=== PATIENT | female | born 1985 | race Caucasian/White ===

== ENCOUNTER 2019-08-28 16:04 | Observation (INO) ==
[2019-08-28] MEDS ORDERED: IOPAMIDOL 100 ML BOTTLE IV ONE (16:05)
[2019-08-28] MEDS ORDERED: 0.9 % SODIUM CHLORIDE 1,000 ML IV ONE (16:31)
--- NOTE | 2019-08-28 16:33 | Emergency Department Note ---
Abdominal Pain HPI - General Chief Complaint: Abdominal Pain Stated Complaint: Lower right abd pain Time Seen by Provider: 08/28/19 16:22 Source: patient Mode of arrival: ambulatory Limitations: no limitations - History of Present Illness HPI Narrative: 34-year-old female patient was referred to the emergency department via my care for worsening right lower quadrant abdominal pain and to rule out appendicitis. Patient tells me she has had umbilical pain for the last 2-3 days it is now slowly migrated towards the right lower quadrant. She describes the umbilical pain is more of a "gas type pain". She describes the pain to her right lower quadrant is more of a "sharp" type pain. She admits to some mild nausea but no vomiting. She denies any diarrhea or constipation. She denies fever, sweats, chills. She denies shortness of breath. She admits to a history of arrhythmias but denies any palpitations or chest pain currently. She denies any vaginal discharge, dysuria, or hematuria. She just finished her menstrual cycle last week. She denies focal weakness. A review of her active problem list shows the following: Vasovagal syncope, d ehydration, endometritis, and palpitations. - Related Data Home Medications Medication Instructions Recorded Confirmed No Known Home Meds 07/19/18 08/28/19 Allergies Allergy/AdvReac Type Severity Reaction Status Date / Time Latex, Natural Rubber AdvReac Intermediate Rash Verified 08/28/19 16:04 Review of Systems All systems ED: reviewed and negative except as stated. Abdominal Pain PMH - Past Medical History Medical history: Reports: migraine GENERAL DUTY NURSE history: Reports: - Social History Smoking status: Never smoker Alcohol use: Reports: Rarely Drug use: Reports: none Physical Exam Limitations: no limitations General appearance: alert, anxious, in no apparent distress (As she rests on the emergency room gurney. She has considerable pain and distress with abdominal palpation.) Head: atraumatic, normocephalic Eye: Present: normal appearance, PERRL, EOMI. Absent: scleral icterus, conjunctival injection ENT: Present: normal oropharynx, mucous membranes moist Neck: Present: trachea midline. Absent: lymphadenopathy, thyromegaly Chest: Present: symmetric chest wall rise Respiratory: Present: normal lung sounds bilaterally. Absent: respiratory distress, wheezes, stridor, accessory muscle use, prolonged expiratory phase Cardiovascular: Present: regular rate, normal rhythm. Absent: systolic murmur, diastolic murmur Abdominal: Present: soft, tenderness, guarding, rebound, normal bowel sounds, psoas sign, heel tap sign. Absent: distention, rigidity, organomegaly, obturator sign, mass Abdominal tenderness: Present: RLQ, severe, heel tap pain. Absent: right femur ext pain Extremities: Absent: pedal edema, pretibial edema, calf tenderness Back: Present: full ROM. Absent: CVA tenderness (R), CVA tenderness (L) Neurological: Present: alert, oriented X3 Psychiatric: Present: normal mood, anxious Skin: Present: warm, dry, normal color Course Course Narrative: Patient was brought into the emergency department and a history and physical exam was performed. Saline lock was established and laboratory studies were drawn. Patient was offered either Toradol or something stronger for abdominal pain but she refused this at this time. An ultrasound of her abdomen was ordered and reviewed. Normal saline was started at thousand liter bolus. Review of her laboratory studies show the following: CBC elevated WBC 12.7, granulocyte percent 85.4, granulocyte #10.8. CMP glucose 110, all others normal limits. Abdominal ultrasound read as mildly distended non-peristalsing tubular structure consistent with slightly enlarged appendix. There is mild right lower quadrant adenopathy with minimal free pelvic fluid. Radiologist recommended a CT scan to rule out appendicitis. Patient's pain worsened and she was given Dilaudid 0.5 mg and Zofran [address] scan was ordered and reviewed. Normal CT scan read by the radiologist as retrocecal appendix with findings consistent with acute appendicitis. With this in mind, I reexamined her general surgeon (Dr. Alvarado) about the patient's condition and need for further evaluation and possible appendectomy. At this time Dr. Alvarado has decided to admit the patient under observation. She told me he did be to finish the rest the admissions orders. At this time patient is going to be admitted to the hospital under the care of Dr. Alvarado. All further treatment decisions and modalities will be carried out by Dr. Alvarado. Vital Signs Temperature 98.0 F 08/28/19 16:04 Pulse Rate 104 H 08/28/19 16:04 Respiratory Rate 16 08/28/19 16:04 Blood Pressure 133/77 08/28/19 16:04 Pulse Oximetry (%) 99 08/28/19 16:04 Temperature 98.0 F 08/28/19 16:04 Pulse Rate 97 H 08/28/19 17:35 Respiratory Rate 16 08/28/19 16:04 Blood Pressure 120/74 08/28/19 17:35 Pulse Oximetry (%) 100 08/28/19 17:35 Abdominal Pain - Lab Data Lab results reviewed: Yes I reviewed the patient's lab results. Result diagrams: 08/28/19 16:46 08/28/19 16:46 Lab Results 08/28/19 08/28/19 Range/Units 16:46 16:46 WBC 12.7 H (4.5-11.0) K/mcL RBC 4.79 (4.00-5.20) M/mcL Hgb 14.3 (12.0-15.0) g/dL Hct 42.9 (36.0-48.0) % MCV 89.7 (80.0-100.0) fL MCH 29.9 (26.0-34.0) pg MCHC 33.3 (31.0-36.0) g/dL RDW 13.4 (11.5-14.5) % Plt Count 264 (140-440) K/mcL MPV 7.7 (7.4-10.4) fL Gran % 85.4 H (38.0-78.0) % Lymph % (Auto) 10.4 L (15.5-49.0) % [place] % (Auto) 3.9 (1.0-12.0) % Eos % (Auto) 0.1 (0.0-7.0) % Baso % (Auto) 0.2 (0.0-2.0) % Gran # 10.8 H (1.8-8.0) K/mcL Lymph # (Auto) 1.3 L (1.5-4.8) K/mcL [place] # (Auto) 0.5 (0.1-0.9) K/mcL Eos # (Auto) 0 (0.0-0.7) K/mcL Baso # (Auto) 0 (0.0-0.3) K/mcL Sodium 137 (133-145) mmol/L Potassium 3.7 (3.3-5.1) mmol/L Chloride 102 (96-108) mmol/L Carbon Dioxide 23 (22-30) mmol/L Anion Gap 12.0 (8-16) BUN 13 (6-20) mg/dl Creatinine 0.7 (0.6-1.1) mg/dl GFR Calculation 112 Glucose 110 H (70-105) mg/dL Calcium 10.1 (8.6-10.4) mg/dl Total Bilirubin 0.3 (0.0-1.0) mg/dL AST 18 (0-37) U/l ALT 14 (0-40) U/l Alkaline Phosphatase 66 (39-117) U/L Total Protein 7.7 (5.9-8.4) gm/dL Albumin 4.7 (3.2-5.2) gm/dL Globulin 3.0 (2.2-3.7) gm/dL Albumin/Globulin Ratio 1.6 (1.0-2.3) - Radiology Data Radiology results reviewed: Yes I reviewed the patient's radiology results. Ordering Physician: Segundo Roca PA-C Date of Service: 08/28/19 Procedure(s): US abdomen limited Accession Number(s): [id number] IMPRESSION: 1. Mildly distended nonperistalsing tubular structure consistent with slightly enlarged appendix 2. Mild right lower quadrant adenopathy and minimal free pelvic fluid Ordering Physician: Segundo Roca PA-C Date of Service: 08/28/19 Procedure(s): CT abdomen pelvis w con Accession Number(s): [id number] IMPRESSION: Retrocecal appendix. Findings consistent with acute appendicitis. There is periappendiceal inflammatory change and fluid ruptured appendicitis is suspected. Interpreted and Authenticated by: Epifanio Greco 08/28/19 Disposition Pt seen by LICENSED VOCATIONAL NURSE/PA only: Yes Clinical Impression: Acute appendicitis Qualifiers: Acute appendicitis type: with localized peritonitis Appendicitis gangrene presence: unspecified whether gangrene present Appendicitis perforation presence: unspecified whether perforation present Appendicitis abscess presence: without abscess Qualified Code(s): K35.30 - Acute appendicitis with localized peritonitis, without perforation or gangrene Disposition: Xfer As Outpt/Obs ([facility]) Condition: Good Additional Instructions: Patient is going to be admitted to the hospital for observation under the care of Dr. Alvarado (general surgeon). All further treatment decisions and modalities will be carried out by Dr. Alvarado. Referrals: Asha Dorsey MD [Primary Care Provider] - Time of Disposition: 18:44
[2019-08-28 17:28] LABS: Basophils # (Auto) 0 K/mcL (0.0-0.3); Basophils % (Auto) 0.2 % (0.0-2.0); Eosinophils # (Auto) 0 K/mcL (0.0-0.7); Eosinophils % (Auto) 0.1 % (0.0-7.0); Granulocytes % (Auto) 85.4 % (38.0-78.0); Hematocrit 42.9 % (36.0-48.0); Hemoglobin 14.3 g/dL (12.0-15.0); Lymphocytes # (Auto) 1.3 K/mcL (1.5-4.8); Lymphocytes % (Auto) 10.4 % (15.5-49.0); Mean Cell Volume 89.7 fL (80.0-100.0); Mean Corpuscular HGB Conc 33.3 g/dL (31.0-36.0); Mean Platelet Volume 7.7 fL (7.4-10.4); Monocytes # (Auto) 0.5 K/mcL (0.1-0.9); Monocytes % (Auto) 3.9 % (1.0-12.0); Platelet Count 264 K/mcL (140-440); RBC 4.79 M/mcL (4.00-5.20); Red Cell Distribution Width 13.4 % (11.5-14.5); WBC 12.7 K/mcL (4.5-11.0)
[2019-08-28] MEDS ORDERED: ONDANSETRON 4 MG/2 ML VIAL IV ONE (17:44)
[2019-08-28 17:48] LABS: ALT/SGPT 14 U/l (0-40); AST/SGOT 18 U/l (0-37); Albumin 4.7 gm/dL (3.2-5.2); Albumin/Globulin Ratio 1.6 (1.0-2.3); Alkaline Phosphatase 66 U/L (39-117); Bilirubin,Total 0.3 mg/dL (0.0-1.0); Blood Urea Nitrogen 13 mg/dl (6-20); Calcium 10.1 mg/dl (8.6-10.4); Carbon Dioxide 23 mmol/L (22-30); Chloride 102 mmol/L (96-108); Glomerular Filtration Rate 112; Glucose 110 mg/dL (70-105)
--- NOTE | 2019-08-28 17:57 | Ultrasound Report ---
CLINICAL INFORMATION: Right lower quadrant pain TECHNIQUE: Routine soft tissue ultrasound. Grayscale and color flow Doppler spectral imaging COMPARISON: None. FINDINGS: There is a nonperistalsing tubular structure in the right lower quadrant. This measures 8 mm maximally. Appearance is consistent with a mildly enlarged appendix. There are small adjacent lymph nodes and there is minimal free fluid. Appearance is suggestive of appendicitis. Confirmatory CT scan is recommended. There is no focal abscess. IMPRESSION: 1. Mildly distended nonperistalsing tubular structure consistent with slightly enlarged appendix 2. Mild right lower quadrant adenopathy and minimal free pelvic fluid Interpreted and Authenticated by: Epifanio Greco 08/28/19
--- NOTE | 2019-08-28 18:21 | Cat Scan Report ---
CLINICAL INFORMATION: Right lower quadrant pain COMPARISON: Limited ultrasound dated 08/28/2019 TECHNIQUE: Axial images were obtained through the abdomen and pelvis. Sagittally and coronally reformatted images. 70 mL Isovue 370 injected intravenously. Oral contrast material was not administered FINDINGS: Lung bases:Negative. No parenchymal infiltrate or mass. No pleural fluid. No pericardial fluid. Liver:Negative. No focal intrahepatic abnormality. No hepatic abscess. Gallbladder, billary:Negative. No calcific gallstones. No dilated bile ducts Spleen:Negative. No splenomegaly. Normal enhancement splenic and portal veins Pancreas:Negative. No pancreatic mass. No peripancreatic abnormality Adrenal glands:Negative Kidneys, ureters, bladder:No renal mass. There is a prominent right renal pelvis. No true hydronephrosis or hydroureter. No urolithiasis. No bladder calculi Gastrointestinal:Prominent fecal material within the sigmoid colon and rectum. Mildly prominent fecal material throughout the colon. Appearance suggests constipation. No dilated small bowel. There is a distended retrocecal appendix. This measures 12 mm in cross-sectional diameter distally. This measures approximately 14 mm in cross-sectional diameter proximally. There is probably a subtle small appendicolith. There is periappendiceal inflammatory change and fluid. No free air. No well-defined abscess. Rupture is suspected. There is minimal fluid within the pelvic cul-de-sac. Vascular:No abdominal aortic aneurysm. No calcified atherosclerotic plaque Lymphatic:No retroperitoneal lymphadenopathy. No mesenteric adenopathy. Mesentery, peritoneum:Small amount of free pelvic fluid within the cul-de-sac. No intra-abdominal abscess. No pneumoperitoneum. Reproductive:Uterus is anteflexed. There is an intrauterine contraceptive device. No adnexal mass Musculoskeletal:Normal lumbar spine. Sacrum and pelvis are negative. IMPRESSION: Retrocecal appendix. Findings consistent with acute appendicitis. There is periappendiceal inflammatory change and fluid ruptured appendicitis is suspected. The exam was performed using radiation dose optimization techniques including, but not limited to, automated exposure control, adjustment of the mA and/or kV according to patient size and use of iterative reconstruction technique. Interpreted and Authenticated by: Epifanio Greco 08/28/19
[2019-08-28] MEDS: HYDROmorphone 2 MG/ML VIAL IV PRN ×3 (18:22→20:32)
[2019-08-28] MEDS ORDERED: PROMETHAZINE 25 MG/ML VIAL IV PRN (19:20)
[2019-08-28] MEDS ORDERED: ONDANSETRON 4 MG/2 ML VIAL IV PRN (19:20)
--- NOTE | 2019-08-28 19:51 | General Surg History&Physical ---
History of Present Illness Patient information: Note initiated : 08/28/19 at 7:48 pm Service Date, if different from initiated Date: [] Patient: Inessa Moore 34 y/o F admitted on for Lower right abd pain. Chief Complaint: [] HPI: Ms. Moore is a 34 year old F admitted with acute appendicitis. The patient has a 5 day history of gas pain and bloating in her midabdomen in the periumbilical area. Today the pain became much worse and localized in the right lower quadrant. She has some nausea with retching. She has not had diarrhea. She still has similar pain in the past. White blood count is 12.5. CT shows dilated appendix with periappendiceal inflammation and fluid compatible with appendicitis. She is counseled for laparoscopic appendectomy and will be performed tomorrow. Review of Systems All systems PM: reviewed and no additional remarkable complaints except as stated (no abnormality no abnormality noted except for migraine headaches and as noted in history of present illness) Past History Past medical history: No chronic medical illness Past surgical history: Tonsillectomy Past family history: Mother age 60 alive and well without illness Father age 62 with hypertension Past social history: No history of tobacco use Occasional wine intake No history of drug abuse Medications and Allergies Home Medications Medication Instructions Recorded Confirmed Type No Known Home Meds 07/19/18 08/28/19 History Allergies Allergy/AdvReac Type Severity Reaction Status Date / Time Latex, Natural Rubber AdvReac Intermediate Rash Verified 08/28/19 16:04 Exam Temp Pulse Resp BP Pulse Ox 98.0 F 96 H 16 114/81 96 08/28/19 16:04 08/28/19 18:42 08/28/19 16:04 08/28/19 18:42 08/28/19 18:42 - General physical appearance well developed, moderate distress, moderate pain, other (underweight) - Eyes PERRL, normal ocular movement - ENT normal pinna, normal nares, normal mucosa, no hearing loss, no congestion - Head Head exam IM: Present: atraumatic, normocephalic - Neck no masses, no bruits, trachea midline, no lymphadenopathy, no venous distension - Cardiovascular Cardiovascular exam IM: Present: normal rate and rhythm - Respiratory normal expansion, normal respiratory effort, clear to percussion, clear to auscultation - Abdomen Abdomen: Present: soft, tender (diffuse tenderness right lower quadrant with guarding), bowel sounds, guarding, distended (mild distention in the hypogastrium) Hernia: Present: none - Genitourinary Present: normal external genitalia - Integumentary Present: no rash, no growths, no abnormal pigmentation - Neurologic Present: normal coordination, normal sensation - Musculoskeletal Present: normal gait, normal posture - Psychiatric Present: oriented to time, oriented to person, oriented to place, speech is normal, memory intact Assessment and Plan (1) Acute appendicitis Patient counseled for laparoscopic appendectomy which will be performed tomorrow Zosyn 3.375 g IV every 6 Promethazine 12.5 mg IV every 4 hours when necessary nausea Dilaudid 1 mg IV every 2 hours when necessary pain Status: Acute Qualifiers: Acute appendicitis type: with localized peritonitis Appendicitis gangrene presence: unspecified whether gangrene present Appendicitis perforation presence: unspecified whether perforation present Appendicitis abscess presence: without abscess Qualified Code(s): K35.30 - Acute appendicitis with localized peritonitis, without perforation or gangrene
[2019-08-28 20:02] LABS: Prothrombin Time 12.9 sec (11.9-14.5)
[2019-08-28] MEDS: 0.9 % SODIUM CHLORIDE 1,000 ML IV SCH (20:31)
[2019-08-28] MEDS: ACETAMINOPHEN 1,000 MG/100 ML BOTTLE IV SCH (20:32)
[2019-08-28] MEDS: PIPERACILLIN SODIUM/TAZOBACTAM 3.375 GM in DEXTROSE 5% IN WATER 50 ML IV SCH (21:20)
[2019-08-28] MEDS: 0.9 % SODIUM CHLORIDE 10 ML SYRINGE IV SCH (21:45)
[2019-08-29] MEDS: ACETAMINOPHEN 1,000 MG/100 ML BOTTLE IV SCH ×3 (01:36→14:03)
[2019-08-29] MEDS: PIPERACILLIN SODIUM/TAZOBACTAM 3.375 GM in DEXTROSE 5% IN WATER 50 ML IV SCH ×4 (02:19→17:14)
[2019-08-29] MEDS: HYDROmorphone 2 MG/ML VIAL IV PRN ×3 (02:57→17:14)
[2019-08-29] MEDS: 0.9 % SODIUM CHLORIDE 1,000 ML IV SCH ×4 (03:35→16:16)
[2019-08-29 06:04] LABS: Basophils # (Auto) 0 K/mcL (0.0-0.3); Basophils % (Auto) 0.2 % (0.0-2.0); Eosinophils # (Auto) 0 K/mcL (0.0-0.7); Eosinophils % (Auto) 0.1 % (0.0-7.0); Granulocytes % (Auto) 78.6 % (38.0-78.0); Hematocrit 36.3 % (36.0-48.0); Hemoglobin 11.9 g/dL (12.0-15.0); Lymphocytes # (Auto) 1.7 K/mcL (1.5-4.8); Lymphocytes % (Auto) 15.7 % (15.5-49.0); Mean Cell Volume 90.8 fL (80.0-100.0); Mean Corpuscular HGB Conc 32.9 g/dL (31.0-36.0); Mean Platelet Volume 7.8 fL (7.4-10.4); Monocytes # (Auto) 0.6 K/mcL (0.1-0.9); Monocytes % (Auto) 5.4 % (1.0-12.0); Platelet Count 221 K/mcL (140-440); Red Cell Distribution Width 13.1 % (11.5-14.5); WBC 11.1 K/mcL (4.5-11.0)
[2019-08-29] MEDS ORDERED: 0.9 % SODIUM CHLORIDE 1,000 ML IV ONE (06:30)
[2019-08-29] MEDS ORDERED: HYDROmorphone 2 MG/ML VIAL IV PRN (06:31)
[2019-08-29 06:41] LABS: ALT/SGPT 9 U/l (0-40); AST/SGOT 13 U/l (0-37); Albumin 3.5 gm/dL (3.2-5.2); Albumin/Globulin Ratio 1.5 (1.0-2.3); Alkaline Phosphatase 51 U/L (39-117); Bilirubin,Direct 0.2 mg/dL (0.0-0.3); Bilirubin,Total 0.9 mg/dL (0.0-1.0); Blood Urea Nitrogen 10 mg/dl (6-20); Calcium 8.2 mg/dl (8.6-10.4); Carbon Dioxide 24 mmol/L (22-30); Chloride 107 mmol/L (96-108); Globulin 2.3 gm/dL (2.2-3.7); Glomerular Filtration Rate 112; Glucose 93 mg/dL (70-105); Lactate Dehydrogenase 140 U/L (94-250); Phosphorous 3.6 mg/dL (2.7-4.5); Uric Acid 1.7 mg/dL (2.5-8.0)
[2019-08-29 06:43] LABS: Triglycerides 28 mg/dl (<150)
[2019-08-29] MEDS: 0.9 % SODIUM CHLORIDE 10 ML SYRINGE IV SCH ×2 (07:11→16:17)
[2019-08-29] MEDS ORDERED: SCOPOLAMINE 1 PATCH PATCH TOPICAL PRN (08:38)
[2019-08-29] MEDS ORDERED: IPRATROPIUM/ALBUTEROL 3 ML AMPUL.NEB NEB PRN ×2 (08:38→12:38)
[2019-08-29 09:46] LABS: HCG,Serum NEGATIVE <10 (<10 mIU/ml)
[2019-08-29] MEDS ORDERED: NALOXONE HCL 0.4 MG/ML VIAL IV PRN (12:38)
[2019-08-29] MEDS ORDERED: LACTATED RINGERS 250 ML IV PRN (12:38)
[2019-08-29] MEDS ORDERED: MEPERIDINE 25 MG/ML SYRINGE IV PRN (12:38)
[2019-08-29] MEDS ORDERED: ONDANSETRON 4 MG/2 ML VIAL IV PRN (12:38)
[2019-08-29] MEDS ORDERED: BENZOCAINE/MENTHOL 1 LOZENGE PO PRN (12:38)
[2019-08-29] MEDS ORDERED: ACETAMINOPHEN 750 MG/75 ML BOTTLE IV ONE (12:38)
[2019-08-29] MEDS ORDERED: diphenhydrAMINE 50 MG/ML VIAL IV PRN (12:38)
[2019-08-29] MEDS ORDERED: KETOROLAC 30 MG/ML VIAL IV PRN (12:38)
[2019-08-29] MEDS ORDERED: LACTATED RINGERS 1,000 ML IV SCH (12:45)
[2019-08-29] MEDS ORDERED: ROCURONIUM 10 MG/ML ML IV ONE (12:46)
[2019-08-29] MEDS ORDERED: ONDANSETRON 4 MG/2 ML VIAL ONE (12:46)
[2019-08-29] MEDS ORDERED: PROPOFOL 200 MG/20 ML VIAL IV ONE (12:46)
[2019-08-29] MEDS ORDERED: MIDAZOLAM 2 MG/2 ML VIAL ONE (12:46)
[2019-08-29] MEDS ORDERED: DEXAMETHASONE 10 MG/ML VIAL ONE (12:46)
[2019-08-29] MEDS ORDERED: SUGAMMADEX SODIUM 200 MG/2 ML VIAL IV ONE (12:46)
[2019-08-29] MEDS ORDERED: fentaNYL 100 MCG/2 ML VIAL IV ONE (12:46)
[2019-08-29] MEDS ORDERED: LIDOCAINE HCL/PF 100 MG/5 ML SYRINGE IV ONE (12:46)
--- NOTE | 2019-08-29 13:52 | Brief Operative Note ---
Date of procedure: 08/29/19 Pre-op diagnosis: acute appendicitis Post-op diagnosis: other (acute appendicitis) Procedure: laparoscopic appendectomy Grafts/Implants: No ( #10 DAYANA DRAIN X 1 ) Anesthesia: GETA Findings: ACUTE SEVERE SUPPURATIVE APPENDICITIS WITH PURULENT PELVIC FLUID Complications: none Surgeon: Jessi Alvarado Estimated blood loss (cc): 20 Specimens Removed/Pathology: other (APPENDIX) Condition: stable Disposition: PACU
[2019-08-29] MEDS: fentaNYL 100 MCG/2 ML VIAL IV PRN ×3 (14:11→14:23)
[2019-08-29] MEDS ORDERED: SCOPOLAMINE 1 PATCH PATCH TOPICAL ONE (14:33)
[2019-08-29] MEDS ORDERED: PROMETHAZINE 25 MG/ML VIAL IV PRN (14:43)
[2019-08-29] MEDS: ACETAMINOPHEN 750 MG/75 ML BOTTLE IV SCH (19:38)
[2019-08-30] MEDS: 0.9 % SODIUM CHLORIDE 1,000 ML IV SCH ×4 (00:18→15:34)
[2019-08-30] MEDS: PIPERACILLIN SODIUM/TAZOBACTAM 3.375 GM in DEXTROSE 5% IN WATER 50 ML IV SCH ×5 (00:19→23:32)
[2019-08-30] MEDS: HYDROmorphone 2 MG/ML VIAL IV PRN (00:57)
[2019-08-30] MEDS: ACETAMINOPHEN 750 MG/75 ML BOTTLE IV SCH ×4 (02:14→20:33)
[2019-08-30 05:28] LABS: Basophils # (Auto) 0 K/mcL (0.0-0.3); Basophils % (Auto) 0 % (0.0-2.0); Eosinophils # (Auto) 0 K/mcL (0.0-0.7); Eosinophils % (Auto) 0 % (0.0-7.0); Granulocytes % (Auto) 88.4 % (38.0-78.0); Hematocrit 35.2 % (36.0-48.0); Hemoglobin 11.8 g/dL (12.0-15.0); Lymphocytes # (Auto) 0.8 K/mcL (1.5-4.8); Lymphocytes % (Auto) 7.5 % (15.5-49.0); Mean Cell Volume 91.2 fL (80.0-100.0); Mean Corpuscular HGB Conc 33.4 g/dL (31.0-36.0); Mean Platelet Volume 8.2 fL (7.4-10.4); Monocytes # (Auto) 0.4 K/mcL (0.1-0.9); Monocytes % (Auto) 4.1 % (1.0-12.0); Platelet Count 210 K/mcL (140-440); RBC 3.86 M/mcL (4.00-5.20); Red Cell Distribution Width 13.3 % (11.5-14.5); WBC 10.1 K/mcL (4.5-11.0)
[2019-08-30 05:50] LABS: ALT/SGPT 8 U/l (0-40); AST/SGOT 11 U/l (0-37); Albumin 2.9 gm/dL (3.2-5.2); Albumin/Globulin Ratio 1.2 (1.0-2.3); Alkaline Phosphatase 48 U/L (39-117); Bilirubin,Total 0.4 mg/dL (0.0-1.0); Blood Urea Nitrogen 8 mg/dl (6-20); Calcium 8.1 mg/dl (8.6-10.4); Chloride 108 mmol/L (96-108); Globulin 2.4 gm/dL (2.2-3.7); Glomerular Filtration Rate 118; Glucose 120 mg/dL (70-105); Lactate Dehydrogenase 136 U/L (94-250); Triglycerides 31 mg/dl (<150)
[2019-08-30 05:56] LABS: Bilirubin,Direct < 0.2 mg/dL (0.0-0.3); Carbon Dioxide 19 mmol/L (22-30); Phosphorous 2.4 mg/dL (2.7-4.5); Uric Acid 1.3 mg/dL (2.5-8.0)
[2019-08-30] MEDS ORDERED: HYDROmorphone 2 MG/ML VIAL IV PRN (06:42)
[2019-08-30] MEDS: oxyCODONE/APAP 5/325MG TABLET PO PRN ×2 (08:15→12:21)
--- NOTE | 2019-08-30 13:21 | Surgical Pathology Report ---
HISTOLOGY SPECIMEN MICROSCOPIC DIAGNOSIS APPENDIX, APPENDECTOMY: -- ACUTE APPENDICITIS WITH SEROSITIS. (DMT:abdiel) PROCEDURAL IMPRESSION Acute appendicitis. GROSS DESCRIPTION Received in formalin labeled appendix, is a purple-coleman appendix that measures 7.7 cm in length and is up to 1.3 cm in diameter. The margin is stapled and it is inked black. Within approximately 3.5 cm from the resection margin, there is a 2 cm disrupted area and from the margin there is a 6 cm staple line. There is coleman-bardales possible exudate on the serosal surface. Sectioning reveals a possible area of perforation with red-brown possible clot-like tissue and pink-bardales mucinous tissue. Backup Engineer sections are submitted in one cassette. (SCB:adj) Electronically Signed by: Colin Jiang M.D.
--- NOTE | 2019-08-30 15:06 | General Surgery Progress Note ---
Subjective Patient reports: feels better, still having pain, no flatus, no bowel movement, nausea, afebrile Narrative: Note initiated : 08/30/19 at 3:03 pm Service Date, if different from initiated Date: [] Patient: Inessa Moore 34 y/o F admitted on 08/28/19 for Lower right abd pain. Chief Complaint: [Patient is significant abdominal and right shoulder pain which is not well controlled with her present medications. Her white blood count is decreased but she still has significant abdominal pain. Her ARABELLA drainage is still purulent. Though her insurance company has not approved her for further inpatient stay I think that it would be detrimental to the patient discharge her at this time. She would not be able to take adequate oral medications to control her pain and she still needs ongoing intravenous antibiotics to treat her infection which extends from her subhepatic space down into her pelvis. Discussed this with protective services case worker and informed them that I cannot discharged the patient last insurance company is willing to take responsibility for her care. I asked for physician to physician consultation but that is not available at this time.] Objective Temp Pulse Resp BP Pulse Ox 98.3 F 52 L 18 91/58 100 08/30/19 11:44 08/30/19 04:40 08/30/19 11:44 08/30/19 11:44 08/30/19 11:44 - Additional Data Intake & Output - Last 24 hours: Intake & Output 08/28/19 08/29/19 08/30/19 08/31/19 05:59 05:59 05:59 05:59 Intake Total 2277 4290 2145 Output Total 3105 2850 Balance 2277 1185 -705 Weight 110 lb 12.8 oz 119 lb 6.4 oz - General physical appearance well nourished, moderate distress, moderate pain - Eyes PERRL, normal ocular movement - ENT normal pinna, normal nares, normal mucosa, no hearing loss, no congestion - Neck no masses, no bruits, trachea midline, no lymphadenopathy, no venous distension - Respiratory normal expansion, normal respiratory effort, clear to auscultation - Cardiovascular Cardiovascular exam: Present: normal rate and rhythm, RRR, +S1, +S2. Absent: JVD, tachycardia - Abdomen tender, bowel sounds (hypoactive bowel sounds), distended (moderate distention with tenderness right flank and right lower quadrant) - Integumentary no rash, no growths, no abnormal pigmentation - Neurologic normal coordination, normal sensation - Musculoskeletal normal gait, normal posture - Psychiatric oriented to time, oriented to person, oriented to place, speech is normal, memory intact - Labs 08/30/19 04:21 08/30/19 04:21 Diabetes panel 08/30/19 Range/Units 04:21 Sodium 138 (133-145) mmol/L Potassium 4.2 (3.3-5.1) mmol/L Chloride 108 (96-108) mmol/L Carbon Dioxide 19 L (22-30) mmol/L BUN 8 (6-20) mg/dl Creatinine 0.6 (0.6-1.1) mg/dl Glucose 120 H (70-105) mg/dL Calcium 8.1 L (8.6-10.4) mg/dl AST 11 (0-37) U/l ALT 8 (0-40) U/l Alkaline Phosphatase 48 (39-117) U/L Total Protein 5.3 L (5.9-8.4) gm/dL Albumin 2.9 L (3.2-5.2) gm/dL Triglycerides 31 (<150) mg/dl Calcium panel 08/30/19 Range/Units 04:21 Calcium 8.1 L (8.6-10.4) mg/dl Phosphorus 2.4 L (2.7-4.5) mg/dL Albumin 2.9 L (3.2-5.2) gm/dL Pituitary panel 08/30/19 Range/Units 04:21 Sodium 138 (133-145) mmol/L Potassium 4.2 (3.3-5.1) mmol/L Chloride 108 (96-108) mmol/L Carbon Dioxide 19 L (22-30) mmol/L BUN 8 (6-20) mg/dl Creatinine 0.6 (0.6-1.1) mg/dl Glucose 120 H (70-105) mg/dL Calcium 8.1 L (8.6-10.4) mg/dl Adrenal panel 08/30/19 Range/Units 04:21 Sodium 138 (133-145) mmol/L Potassium 4.2 (3.3-5.1) mmol/L Chloride 108 (96-108) mmol/L Carbon Dioxide 19 L (22-30) mmol/L BUN 8 (6-20) mg/dl Creatinine 0.6 (0.6-1.1) mg/dl Glucose 120 H (70-105) mg/dL Calcium 8.1 L (8.6-10.4) mg/dl Total Bilirubin 0.4 (0.0-1.0) mg/dL AST 11 (0-37) U/l ALT 8 (0-40) U/l Alkaline Phosphatase 48 (39-117) U/L Total Protein 5.3 L (5.9-8.4) gm/dL Albumin 2.9 L (3.2-5.2) gm/dL Assessment and Plan (1) Acute appendicitis Status: Acute Assessment and plan: Delay discharge because of uncontrolled pain and intolerance to oral narcotics. We'll try a combination of tramadol and IV Dilaudid and allow another day or so for her pain to improve. Current Visit: Yes - Time Spent With Patient Total time spent is greater than 50% in coordination of care (as documented) at patient's floor/unit and/or counseling patient:
[2019-08-30] MEDS ORDERED: oxyCODONE HCL 5 MG TABLET PO PRN (15:21)
[2019-08-30] MEDS: traMADol 50 MG TABLET PO PRN ×2 (16:59→23:27)
[2019-08-31] MEDS: ACETAMINOPHEN 750 MG/75 ML BOTTLE IV SCH ×4 (02:01→20:39)
[2019-08-31] MEDS: ONDANSETRON 4 MG/2 ML VIAL IV PRN ×2 (02:08→06:05)
[2019-08-31] MEDS: 0.9 % SODIUM CHLORIDE 1,000 ML IV SCH ×2 (02:36→15:22)
[2019-08-31] MEDS: traMADol 50 MG TABLET PO PRN ×3 (05:15→19:03)
[2019-08-31] MEDS: PIPERACILLIN SODIUM/TAZOBACTAM 3.375 GM in DEXTROSE 5% IN WATER 50 ML IV SCH ×3 (05:16→17:43)
[2019-08-31 05:49] LABS: Basophils # (Auto) 0 K/mcL (0.0-0.3); Basophils % (Auto) 0 % (0.0-2.0); Eosinophils # (Auto) 0 K/mcL (0.0-0.7); Eosinophils % (Auto) 0.4 % (0.0-7.0); Granulocytes % (Auto) 79.5 % (38.0-78.0); Hematocrit 32.8 % (36.0-48.0); Hemoglobin 10.9 g/dL (12.0-15.0); Lymphocytes # (Auto) 1.5 K/mcL (1.5-4.8); Lymphocytes % (Auto) 14.1 % (15.5-49.0); Mean Cell Volume 91.4 fL (80.0-100.0); Mean Corpuscular HGB Conc 33.2 g/dL (31.0-36.0); Mean Platelet Volume 8.1 fL (7.4-10.4); Monocytes # (Auto) 0.6 K/mcL (0.1-0.9); Platelet Count 203 K/mcL (140-440); RBC 3.59 M/mcL (4.00-5.20); Red Cell Distribution Width 13.3 % (11.5-14.5); WBC 10.4 K/mcL (4.5-11.0)
[2019-08-31 06:05] LABS: ALT/SGPT 15 U/l (0-40); AST/SGOT 20 U/l (0-37); Albumin/Globulin Ratio 1.3 (1.0-2.3); Alkaline Phosphatase 47 U/L (39-117); Bilirubin,Direct < 0.2 mg/dL (0.0-0.3); Bilirubin,Total 0.3 mg/dL (0.0-1.0); Blood Urea Nitrogen 7 mg/dl (6-20); Calcium 8.2 mg/dl (8.6-10.4); Carbon Dioxide 21 mmol/L (22-30); Chloride 108 mmol/L (96-108); Globulin 2.4 gm/dL (2.2-3.7); Glomerular Filtration Rate 112; Glucose 95 mg/dL (70-105); Lactate Dehydrogenase 120 U/L (94-250); Triglycerides 60 mg/dl (<150); Uric Acid 1.3 mg/dL (2.5-8.0)
[2019-08-31 06:07] LABS: Phosphorous 1.4 mg/dL (2.7-4.5)
[2019-08-31] MEDS ORDERED: POTASSIUM PHOSPHATE 40 MEQ in DEXTROSE 5% IN WATER 500 ML IV ONE (11:00)
--- NOTE | 2019-08-31 12:09 | General Surgery Progress Note ---
Subjective Patient reports: feels better, still having pain, pain is less, flatus, no bowel movement, nausea, afebrile Narrative: Note initiated : 08/31/19 at 12:07 pm Service Date, if different from initiated Date: [] Patient: Inessa Moore 34 y/o F admitted on 08/28/19 for Lower right abd pain. Chief Complaint: [] Objective Temp Pulse Resp BP Pulse Ox 98.0 F 78 20 96/59 98 08/31/19 10:17 08/31/19 03:55 08/31/19 03:55 08/31/19 03:55 08/31/19 03:55 - Additional Data Intake & Output - Last 24 hours: Intake & Output 08/29/19 08/30/19 08/31/19 09/01/19 05:59 05:59 05:59 05:59 Intake Total 2277 4290 4160 285 Output Total 3105 4430 845 Balance 2277 1185 -270 -560 Weight 110 lb 12.8 oz 119 lb 6.4 oz 121 lb 8 oz 121 lb 8 oz - General physical appearance well developed, well nourished, moderate distress, moderate pain - Eyes PERRL, normal ocular movement - ENT normal pinna, normal nares, normal mucosa, no hearing loss, no congestion - Neck no masses, no bruits, trachea midline, no lymphadenopathy, no venous distension - Respiratory normal expansion, normal respiratory effort, clear to auscultation - Cardiovascular Cardiovascular exam: Present: normal rate and rhythm, RRR, +S1, +S2. Absent: JVD, tachycardia - Abdomen tender (moderate tenderness right lower quadrant and right flank; active bowel sounds; mild distention), distended - Integumentary no rash, no growths, no abnormal pigmentation - Neurologic normal coordination, normal sensation - Musculoskeletal normal gait, normal posture - Psychiatric oriented to time (yellow toe 1), oriented to person, oriented to place, speech is normal, memory intact - Labs 08/31/19 04:44 08/31/19 04:44 Diabetes panel 08/31/19 Range/Units 04:44 Sodium 138 (133-145) mmol/L Potassium 3.8 (3.3-5.1) mmol/L Chloride 108 (96-108) mmol/L Carbon Dioxide 21 L (22-30) mmol/L BUN 7 (6-20) mg/dl Creatinine 0.7 (0.6-1.1) mg/dl Glucose 95 (70-105) mg/dL Calcium 8.2 L (8.6-10.4) mg/dl AST 20 (0-37) U/l ALT 15 (0-40) U/l Alkaline Phosphatase 47 (39-117) U/L Total Protein 5.4 L (5.9-8.4) gm/dL Albumin 3.0 L (3.2-5.2) gm/dL Triglycerides 60 (<150) mg/dl Calcium panel 08/31/19 Range/Units 04:44 Calcium 8.2 L (8.6-10.4) mg/dl Phosphorus 1.4 L (2.7-4.5) mg/dL Albumin 3.0 L (3.2-5.2) gm/dL Pituitary panel 08/31/19 Range/Units 04:44 Sodium 138 (133-145) mmol/L Potassium 3.8 (3.3-5.1) mmol/L Chloride 108 (96-108) mmol/L Carbon Dioxide 21 L (22-30) mmol/L BUN 7 (6-20) mg/dl Creatinine 0.7 (0.6-1.1) mg/dl Glucose 95 (70-105) mg/dL Calcium 8.2 L (8.6-10.4) mg/dl Adrenal panel 08/31/19 Range/Units 04:44 Sodium 138 (133-145) mmol/L Potassium 3.8 (3.3-5.1) mmol/L Chloride 108 (96-108) mmol/L Carbon Dioxide 21 L (22-30) mmol/L BUN 7 (6-20) mg/dl Creatinine 0.7 (0.6-1.1) mg/dl Glucose 95 (70-105) mg/dL Calcium 8.2 L (8.6-10.4) mg/dl Total Bilirubin 0.3 (0.0-1.0) mg/dL AST 20 (0-37) U/l ALT 15 (0-40) U/l Alkaline Phosphatase 47 (39-117) U/L Total Protein 5.4 L (5.9-8.4) gm/dL Albumin 3.0 L (3.2-5.2) gm/dL Assessment and Plan (1) Acute appendicitis Status: Acute Assessment and plan: Delay discharge because of uncontrolled pain and intolerance to oral narcotics. We'll try a combination of tramadol and IV Dilaudid and allow another day or so for her pain to improve. Current Visit: Yes - Time Spent With Patient Total time spent is greater than 50% in coordination of care (as documented) at patient's floor/unit and/or counseling patient:
--- NOTE | 2019-08-31 12:13 | Discharge Summary ---
Providers - Providers Patient information: Note initiated : 08/31/19 at 12:11 pm Service Date, if different from initiated Date: [] Patient: Inessa Moore 34 y/o F admitted on 08/28/19 for Lower right abd pain. Chief Complaint: [] Date of admission: 08/28/19 Discharge date: 08/31/19 Attending physician: Jessi Alvarado Hospitalization Hospital Course: 34-year-old female with a five-day history of abdominal pain and nausea. Her symptoms became progressively more severe and she was seen in the emergency room. White blood count was 12.5. CT scan was compatible with acute severe appendicitis with possible perforation. She underwent laparoscopic appendectomy on 29 August 2019. She was found to have a retrocecal appendix that extended from the right lower quadrant to the subhepatic space with inflammatory reaction in the entire retrocolic area extending the entire distance. The appendix appeared to be necrotic and there was significant amount of purulence in the subhepatic space. After appendectomy the area was flushed copiously and was drained. She did relatively well but had ileus with pain nausea and bloating. She also had significant shoulder pain. White blood count returned to normal but she had purulent drainage. The drainage is still purulent but is less copious than on yesterday. She is stable for discharge but she will be placed on cefepime 2 g daily for the next week to assure that she has adequate healing. I'll also get a follow-up CT to confirm healing before pulling the drain. White blood count 10.4, hemoglobin 10.9, hematocrit 32.8. Discharge diagnosis: acute appendicitis Reason for admission: abdominal pain nausea vomiting and appendicitis Procedures: Laparoscopic appendectomy Pertinent studies/significant findings: CT of abdomen and pelvis with IV contrast Complications: None Exam Temp Pulse Resp BP Pulse Ox 98.0 F 78 20 96/59 98 08/31/19 10:17 08/31/19 03:55 08/31/19 03:55 08/31/19 03:55 08/31/19 03:55 - General physical appearance well developed, well nourished, no distress - Eyes PERRL, normal ocular movement - ENT normal pinna, normal nares, normal mucosa, no hearing loss, no congestion - Head Head exam IM: Present: atraumatic, normocephalic - Neck no masses, no bruits, trachea midline, no lymphadenopathy, no venous distension - Cardiovascular Cardiovascular exam IM: Present: normal rate and rhythm - Respiratory normal expansion, normal respiratory effort, clear to auscultation - Abdomen Abdomen: Present: soft, tender (tenderness to palpation in right lower quadrant and right flank; ARABELLA drain with purulent drainage), bowel sounds Hernia: Present: none - Genitourinary Present: normal external genitalia - Integumentary Present: no rash, no growths, no abnormal pigmentation - Neurologic Present: normal coordination, normal sensation - Musculoskeletal Present: normal gait, normal posture - Psychiatric Present: oriented to time, oriented to person, oriented to place, speech is normal, memory intact Discharge Plan - Patient/Caregiver Discharge Instructions Activity: increase activity as tolerated Diet: Regular Diet Additional Instructions: Patient is going to be admitted to the hospital for observation under the care of Dr. Alvarado (general surgeon). All further treatment decisions and modalities will be carried out by Dr. Alvarado. Prescriptions: Cefepime HCl/Dextrose, Iso-Osm [Cefepime 2 gm Injection] 2 gm IV DAILY 7 Days #7 [email or web address] Transmission Status: Pending to [facility] traMADol [Ultram] 100 mg PO Q6HP PRN #60 tab PRN Reason: Pain Prescription Printed Ondansetron HCl [Zofran] 4 mg PO Q4-6HP PRN #30 tab PRN Reason: Nausea And Vomiting Transmission Status: Pending to [facility] - Follow up Plan Follow up with: Asha Dorsey MD [Primary Care Provider] - Disposition: Home, Self-Care Prognosis: Good Rehab Potential: Good I certify that the patient requires SNF services.: No Overall status at discharge: patient is not back to baseline Pending Studies Resuscitation Status Full Code Diet Full Liquid Diet Start Viky Aug 29 151 Hydromorphone HCl (Dilaudid) 0.5 mg IV Q2HP PRN; Protocol PRN Reason: Per Pain Protocol Last Admin: 08/30/19 15:26 Dose: 0.5 mg Documented by: [email or web address] Acetaminophen (Ofirmev) 750 mg in 75 mls @ 200 mls/hr IV Q6H LIN Last Infusion: 08/31/19 10:40 Dose: 200 mls/hr Documented by: [email or web address] Admin: 08/31/19 09:32 Dose: 200 mls/hr Documented by: [email or web address] Infusion: 08/31/19 03:41 Dose: 0 mls/hr Documented by: Admin: 08/31/19 02:01 Dose: 200 mls/hr Documented by: Infusion: 08/30/19 21:39 Dose: 0 mls/hr Documented by: Admin: 08/30/19 20:33 Dose: 200 mls/hr Documented by: Infusion: 08/30/19 16:00 Dose: 0 mls/hr Documented by: [email or web address] Admin: 08/30/19 15:25 Dose: 200 mls/hr Documented by: [email or web address] Infusion: 08/30/19 08:50 Dose: 0 mls/hr Documented by: [email or web address] Admin: 08/30/19 08:16 Dose: 200 mls/hr Documented by: [email or web address] Infusion: 08/30/19 02:40 Dose: 0 mls/hr Documented by: Admin: 08/30/19 02:14 Dose: 200 mls/hr Documented by: Infusion: 08/29/19 20:01 Dose: 0 mls/hr Documented by: Admin: 08/29/19 19:38 Dose: 200 mls/hr Documented by: SULEMAN Piperacillin Sod/Tazobactam (Sod 3.375 gm/ Dextrose) 50 mls @ 100 mls/hr IV Q6H LIN; Protocol Last Infusion: 08/31/19 06:05 Dose: 0 mls/hr Documented by: Admin: 08/31/19 05:16 Dose: 100 mls/hr Documented by: Infusion: 08/31/19 00:02 Dose: 100 mls/hr Documented by: Admin: 08/30/19 23:32 Dose: 100 mls/hr Documented by: Infusion: 08/30/19 18:32 Dose: 100 mls/hr Documented by: Admin: 08/30/19 18:02 Dose: 100 mls/hr Documented by: [email or web address] Infusion: 08/30/19 12:00 Dose: 0 mls/hr Documented by: [email or web address] Admin: 08/30/19 11:29 Dose: 100 mls/hr Documented by: Infusion: 08/30/19 06:30 Dose: 0 mls/hr Documented by: Admin: 08/30/19 06:00 Dose: 100 mls/hr Documented by: Infusion: 08/30/19 00:50 Dose: 0 mls/hr Documented by: Admin: 08/30/19 00:19 Dose: 100 mls/hr Documented by: Infusion: 08/29/19 17:44 Dose: 100 mls/hr Documented by: Admin: 08/29/19 17:14 Dose: 100 mls/hr Documented by: HENNY Sodium Chloride (Sodium Chloride 0.9%) 1,000 mls @ 50 mls/hr IV .Q20H LIN Last Admin: 08/31/19 02:36 Dose: 50 mls/hr Documented by: Admin: 08/30/19 15:34 Dose: Not Given Documented by: [email or web address] Ondansetron HCl (Zofran) 4 mg IV Q4HP PRN; Protocol PRN Reason: Nausea/Vomiting Last Admin: 08/31/19 06:05 Dose: 4 mg Documented by: Admin: 08/31/19 02:08 Dose: 4 mg Documented by: CELY Promethazine HCl (Phenergan) 12.5 mg IV Q4HP PRN; Protocol PRN Reason: Nausea/Vomiting Last Admin: 08/29/19 14:54 Dose: 12.5 mg Documented by: HENNY Tramadol HCl (Ultram) 100 mg PO Q6HP PRN PRN Reason: Pain Last Admin: 08/31/19 05:15 Dose: 100 mg Documented by: Admin: 08/30/19 23:27 Dose: 100 mg Documented by: Admin: 08/30/19 16:59 Dose: 100 mg Documented by: [email or web address] Shift Summary 08/31/19 04:02 Shift Summary by Doris Mcgowan. Last BP 96/59, pulse 78. Afebrile. A&Ox4. Receiving scheduled Ofirmev. 100mg PO Tramadol once PRN at approx. 2330 for R abdominal and R shoulder ache. Pt. states pain has been tolerable tonight. 4mg Zofran IV given at approx. 0200 for nausea, effective. Scopolamine patch to R ear. Pt. would like to go home with a PRN for nausea if possible. IV to R FA is running 0.9% NS at 50mls/hr. Film dressing to lap sites are clean and intact, scant drainage visible. ARABELLA drain with 20cc serosanguineous output, dressing is C/D/I. Up to bathroom with SBA/assistance with IV pole. Initialized on 08/31/19 04:02 - END OF NOTE
--- NOTE | 2019-09-10 08:20 | Operative Note ---
DATE OF OPERATION: 08/29/2019 PREOPERATIVE DIAGNOSIS: Acute appendicitis. POSTOPERATIVE DIAGNOSIS: Acute appendicitis. PROCEDURE: Laparoscopic appendectomy. SURGEON: Jessi Alvarado MD FINDINGS: Acute severe suppurative appendicitis with purulent pelvic fluid. DESCRIPTION OF PROCEDURE: Under general anesthesia, the patient's abdomen was prepped and draped in a sterile field. Supraumbilical incision was made. Veress needle was inserted uneventfully. A 12 mm port was placed. Laparoscope was placed. There was purulent fluid in the pelvis and severely inflamed appendix. The patient was placed in deep Trendelenburg position. The pelvis was irrigated and suctioned. The appendix was noted to be extending retrocecal from the right gutter up into the right upper quadrant near the subhepatic area. The cecum was divided along its lateral attachments and rotated to the left. The base of the appendix was grasped and the appendix was then serially dissected from the retrocecal position. It was severely inflamed all the way up into the upper abdomen. Once it was freed, a window was made at the base and the base was transected using the ORTIZ stapler. The mesoappendix was long and thickened. It was divided using 4 fires of the Endo-ORTIZ stapler. Copious irrigation carried out. The appendix was placed in an Endopouch and retrieved. A 10 Ming drain was placed and brought out through the port in the lower abdomen. Further inspection was carried out and no other purulent pockets or abscesses were noted. The Ming drain was placed in the tract of the retrocecal appendix. CO2 was allowed to escape from the abdomen and the ports were removed. Fascia at the umbilicus was closed with 0 Vicryl. Skin incisions were closed with misha. Drain was secured with 2-0 nylon. Tegaderm dressings were placed. The patient was awakened from anesthesia, transferred to a bed and taken to the postanesthetic care unit in stable, satisfactory condition. LCS:gisell Job ID: [id number] Doc ID: [id number] Jessi Alvarado M.D.
== END 2019-08-31 20:48 | disposition home or self-care (01) ==
LOC: ED 16:04 → MEDSUR 16:04
PROVIDERS: ADMIT Family Medicine Adult Medicine; ATTEND Family Medicine Adult Medicine